=== PATIENT | female | born 2005 | race Two or more races ===

== ENCOUNTER 2025-06-28 09:03 | Emergency (ER) | payer OTHER ==
[~2025-06-28] VITALS: Ht 162.6 cm; Wt 94.5 kg
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
[2025-06-28] MEDS ORDERED: NAPR-957 PO (10:34)
[2025-06-28 10:57] VITALS: BP 115/77; PULSE 89; RESP 18; TEMP 98.6; O2SAT 98
== END 2025-06-28 11:06 | disposition home or self-care (01) ==
LOC: ER 09:03
DX: S40.011A Contusion of right shoulder, initial encounter (principal); M54.50 Low back pain, unspecified; M54.2 Cervicalgia; V89.2XXA Person injured in unspecified motor-vehicle accident, traffic, initial encounter; Y93.I9 Activity, other involving external motion; Y92.488 Other paved roadways as the place of occurrence of the external cause; Y99.8 Other external cause status